=== PATIENT | female | born 1960 | race Caucasian/White ===

== ENCOUNTER → 2017-05-20 | Outpatient (CLI) | payer BC ==
--- NOTE | 2017-05-20 14:26 | KCIC ---
History: Routine screening. Technique: Bilateral digital mammographic routine views were obtained with CAD - computer aided detection. Comparison: December 01, 2014. Findings: Breast Tissue Density B :The breast tissue is composed of mixed fatty and fibroglandular tissue. There are no suspicious masses, microcalcifications or areas of architectural distortion. Impression: Negative mammogram. BI-RADS Category 1: Negative. Normal interval followup. A mammogram does not have 100% sensitivity and therefore a negative imaging study should not delay further work up of a suspicious abnormality. The patient will receive a letter with the results in the mail. Patient information is entered into the reminder system with a target due date for the next screening mammogram. The patient will receive a reminder. "Our facility is accredited by the [employer] Mammography Program." Electronically signed by: David Chambers III, MD (05/20/2017 2:23 PM) [id number]
== END | disposition home or self-care (01) ==
LOC: KCIC MAMMO 10:45
PROVIDERS: ATTEND Family Medicine
DX: Z12.31 Encounter for screening mammogram for malignant neoplasm of breast (principal)
CPT/HCPCS: G0202; 77067

== ENCOUNTER → 2017-06-30 | Outpatient (CLI) | payer BC ==
[~2017-06-30] MED LIST: ALPR0.5T PO; BUPR100T7 PO; CARI350T PO; GABA600T2 PO; GADOBUTROL 10 MMOL/10 ML VIAL IV ONE; HYDR-2762 PO; TRAM50TA PO
--- NOTE | 2017-06-30 11:31 | KCIC ---
EXAM: Cervical spine MRI without and without contrast. HISTORY: Neck pain. Paresthesia. TECHNIQUE: Multiplanar, multisequence magnetic resonance imaging of the cervical spine was performed prior to and following the administration of 9 cc Gadavist contrast. COMPARISON: None. FINDINGS: There is straightening of cervical lordosis. There is mild anterolisthesis of C4 on C5. The vertebral bodies are normal in height. No suspicious osseous lesion is seen. There is degenerative endplate remodeling and osteophytosis primarily at C6-C7, and to lesser extent, C4-C5 and C5-C6. There is suggestion of patchy T2 hyperintensity within the cervical spinal cord at the mid and lower cervical levels on sagittal images. This is artifactual given the absence of a correlate for finding on axial images. No convincing spinal cord lesion is seen. There is thin ventral epidural enhancement throughout the cervical vertebral levels, not within limits to suggest an infectious or neoplastic etiology. This is likely due to a prominent ventral venous plexus. There are few dilated nerve root sheath cysts within the foraminal and extraforaminal spaces at the cervical an upper thoracic levels. At C2-C3, there is no stenosis. At C3-C4, there is a left paracentral to foraminal disc protrusion proposed on endplate remodeling. There is mild to moderate left foraminal stenosis. At C4-C5, there is a disc bulge and endplate remodeling. There is mild left facet arthropathy. There is no stenosis. At C5-C6, there is a broad-based left paracentral extraforaminal disc protrusion superimposed on a disc bulge and left posterior lateral predominant endplate osteophytosis. There is left uncovertebral arthropathy. There is mild left foraminal stenosis. There is abutment of the left ventral aspect of the spinal cord and deviation of the left ventral nerve ramus without significant central canal stenosis. At C6-C7, there is a diffuse disc bulge and endplate osteophytosis. There is left greater than right uncovertebral arthropathy. There is mild left foraminal stenosis. IMPRESSION: Multilevel degenerative changes of the cervical spine, described in detail above. This results in mild to moderate left foraminal stenosis at C3-C4, mild left foraminal stenosis and abutment of the left ventral nerve ramus at C5-C6 and mild left foraminal stenosis at C6-C7. Electronically signed by: Marci Fagan MD (06/30/2017 11:28 AM) [id number]
== END | disposition home or self-care (01) ==
LOC: KCIC MRI 10:11
PROVIDERS: ATTEND Family Medicine
DX: M48.02 Spinal stenosis, cervical region (principal); M47.892 Other spondylosis, cervical region; R20.2 Paresthesia of skin
CPT/HCPCS: 72156; A9585

== ENCOUNTER → 2017-08-19 | Outpatient (CLI) | payer BC ==
[~2017-08-19] MED LIST changes: -GADOBUTROL 10 MMOL/10 ML VIAL IV ONE
--- NOTE | 2017-08-19 13:51 | KCIC ---
CHEST PA LATERAL History: Bronchitis, productive cough x1 month. Sweats, shortness of air, nonsmoker. Comparison: None. Findings: The cardiomediastinal silhouette is normal. Pulmonary vasculature is normal. The lungs are clear. No pleural effusion or pneumothorax is seen. There is no acute bone abnormality. IMPRESSION: No acute cardiopulmonary process. Electronically signed by: Theron Epperson MD (08/19/2017 1:48 PM) [id number]
== END | disposition home or self-care (01) ==
LOC: KCIC 12:22
PROVIDERS: ATTEND Family Medicine
DX: J40 Bronchitis, not specified as acute or chronic (principal)
CPT/HCPCS: 71020

== ENCOUNTER → 2018-05-21 | Outpatient (CLI) | payer BC ==
--- NOTE | 2018-05-21 16:26 | KCIC ---
Bilateral digital screening mammograms: Reason for examination: Routine screening. Comparison is made to previous studies dated 05/20/2017 and 12/20/2015. Interpretation was made with the benefit of CAD. The skin and nipples show no abnormalities. No abnormal axillary lymph nodes are seen. The breast parenchyma shows scattered fibroglandular density. (Breast density: Category B.) There are no dominant masses, suspicious calcifications or architectural distortions. Impression: No evidence of malignancy. Recommend routine screening. BI-RADS Category 1: Negative. "Our facility is accredited by the [employer] Mammography Program." This patient's information has been entered into a reminder system for the patient to be notified with the results of her examination and a target date for the next mammogram. Electronically signed by: Deidra Parham MD (05/21/2018 4:23 PM) [id number]
== END | disposition home or self-care (01) ==
LOC: KCIC MAMMO 14:27
PROVIDERS: ATTEND Family Medicine
DX: Z12.31 Encounter for screening mammogram for malignant neoplasm of breast (principal)
CPT/HCPCS: 77067